=== PATIENT | male | born 1950 | race Caucasian/White ===

== ENCOUNTER → 2019-10-11 12:41 | Outpatient (CLI) | payer MEDICARE, BC ==
--- NOTE | 2019-10-13 08:24 | ST ---
PATIENT:JAKE CABRERA MEDICAL RECORD: [id number] SEX: M LOCATION:[facility] ORDER #: ADMISSION DATE: 10/11/19 AGE OF PATIENT: 68 REFERRING PHYSICIAN: INTERPRETING PHYSICIAN: KP HENDERSON MD DATE OF SERVICE: 10/11/2019 PROCEDURE: Stress test. TECHNIQUE: Bassline ECG is normal. Exercised for 6 minutes on Jordan protocol. Maximum heart rate is 156 beats per minute, 100% max predicted. No ECG changes of ischemia. No symptoms of ischemia. IMPRESSION: Normal blood pressure response to exercise. No arrhythmias noted. Fair exercise tolerance for age. TRANSINT:[id number] Voice Confirmation ID: [id number] DOCUMENT ID: [id number] KP HENDERSON MD at 0824 CC: [id number] DICTATION DATE: 10/12/19 1320 ORDERLY: 10/13/19 0317 DEP CLI 10/11/19 [id number] [place] [address]
--- NOTE | 2019-10-13 08:24 | ST ---
PATIENT:JAKE CABRERA MEDICAL RECORD: [id number] SEX: M LOCATION:[facility] ORDER #: ADMISSION DATE: 10/11/19 AGE OF PATIENT: 68 REFERRING PHYSICIAN: INTERPRETING PHYSICIAN: KP HENDERSON MD DATE OF SERVICE: 10/11/2019 PROCEDURE: Treadmill stress test. Baseline ECG is normal. Exercised for 6 minutes on Jordan protocol. Maximum heart 156 beats per minute, greater than 100% maximum predicted. No ECG changes for ischemia. No symptoms of ischemia. Fair exercise tolerance for age. No arrhythmias were noted. TRANSINT:[id number] Voice Confirmation ID: [id number] DOCUMENT ID: [id number] KP HENDERSON MD at 0824 CC: [id number] DICTATION DATE: 10/12/19 0840 CURRICULUM COUNSELOR: 10/13/19 0210 DEP CLI 10/11/19 [id number] [place] [address]
--- NOTE | 2019-10-13 08:24 | EC ---
PATIENT:JAKE CABRERA DATE OF SERVICE: 10/11/19 SEX: M MEDICAL RECORD: [id number] DATE OF : 54 LOCATION:[facility] AGE OF PATIENT: 68 ADMISSION DATE: 10/11/19 REFERRING PHYSICIAN: INTERPRETING PHYSICIAN: KP HENDERSON MD ECHOCARDIOGRAM REPORT ECHO CHARGES 4 ECHO COMPLETE Date: 10/11/19 CLINICAL DIAGNOSIS: HEART MURMUR ECHOCARDIOGRAPHIC MEASUREMENTS (adult normal given) AC root (d.<3.7cm) 3.3 cm LV Septum d (<1.2 cm> 1.3 cm Valve Excursion 1.6 cm LV Septum (systole) 1.5 cm Left Atria (s.<4.0cm> 3.9 cm LVPW d(<1.2cm) 1.3 cm RV (d.<2.3cm) 3.3 cm LVPW (sytole) 1.5 cm LV diastole(<5.6CM) 4.8 cm MV E-F(>70mm/sec) cm LV systole 3.6 cm LVOT Diameter 1.9 cm MV exc.(>10mm) 1.3 cm Est.ejection fraction (50-75%) % DOPPLER: LVIT cm/sec A 86.0 cm/sec E 61.0 cm/sec LA cm/sec RVSP 26 mmHg LVOT 128 cm/sec AOP1/2T 782 m/s Asc. Ao 139 cm/sec RVOT 81 cm/sec RA cm/sec PA 128 cm/sec AV Gradient Peak 7.72 mmHg AV Mean 3.96 mmHg AV Area 2.3 cm MV Gradient Peak 3.98 mmHg MV Mean 1.77 mmHg MV Area cm COMMENTS: Silk Finisher: 2 GWYN CHRISTINE Counter Professional: 3 Dr. Torres TAPE# PACS Pericardial Effusion N DATE OF SERVICE: Adequate 2D, color flow imaging, spectral Doppler, and M-Mode. Mild LVH. LV internal dimension is normal. Wall motion is normal. EF is greater than or equal to 55%. Aortic valve is tricuspid. There is no evidence of stenosis by Doppler interrogation. There is mild AI by color flow imaging. Left atrium is normal at 3.9 cm. Mitral valve shows no prolapse. Trace MR. Right-sided chambers are grossly normal. Trace TR. ECHOCARDIOGRAM REPORT [id number] JAKE CABRERA TRANSINT:[id number] Voice Confirmation ID: [id number] DOCUMENT ID: [id number] KP HENDERSON MD at 0824 CC: [id number] DICTATION DATE: 10/12/1942 BACKEND JAVA DEVELOPER: 10/12/19 0928 DEP CLI 10/11/19 [id number] [place] [id number]
== END | disposition home or self-care (01) ==
LOC: D.HCCECHO 12:41
PROVIDERS: ATTEND Internal Medicine Interventional Cardiology
DX: R06.09 Other forms of dyspnea (principal)